=== PATIENT | male | born 1950 | race Caucasian/White ===

== ENCOUNTER 2024-11-17 12:30 | Outpatient (AMB) | payer MEDICARE, BC, SELFPAY ==
--- NOTE | 2024-11-17 13:07 | A.OFFVIS_ITS ---
Vital Signs 11/17/24 13:08 Height 6 ft 1 in Weight 165 lb 5.547 oz BMI 21.8 BP 120/74 Blood Pressure Location Lt brachial Position Sitting Pulse 74 Intake Visit Reasons: HYDRAULIC PRESS OPERATOR//CAD,[facility] Intake Note: New patient dx CAD was seeing Dr howard wanted a new doctor Dental Laboratory Assistant Required: No Allergies Brlkpge-VRG-NeP Reductase Inhibitor Allergy (Mild, Verified 11/17/24 13:14) nausa Medication List - Last Reconciled 11/17/24 by Felix Rangel MD aspirin (Adult Aspirin Regimen) 81 mg PO DAILY calcium carbonate (Tums) 200 mg PO BID cholecalciferol (vitamin D3) 25 mcg PO DAILY HPI Comments Details: Thank you for referring Pete in cardiology consultation today for management of coronary artery disease. He is a pleasant 74-year-old male with prior remote history of multivessel stenting in July 2018. He says that he was advise a stress test and while performing the stress test they emergently referred him to the emergency room because of abnormal EKG, question severe ischemia detected. He was then noted to be stabilized in the emergency room and subsequently was advised a cardiac catheterization which happen 2 weeks later. This showed severe three-vessel disease including , proximal 99% LAD, 100% OM1 lesion which was felt to be chronic total occlusion and distal bifurcation RPDA and RPLV 99% stenosis. He was referred for surgical evaluation although after discussion with his patient decided to undergo multivessel PCI and underwent drug- eluting stent to proximal LAD as well as to RPDA and RPLV. He said he might have symptoms exertional shortness of breath prior to the procedure as he was noticing shortness of breath but never had any chest pain prior to the procedure. Since the procedure he said he has been doing well. Denies any clear worsening shortness of breath. Denies any exertional chest pain at this point time. He 11 months post PCI was on statin therapy and had developed rhabdomyolysis and statins were stopped and no other lipid therapy has been initiated. He is currently only on aspirin therapy. His metoprolol was stopped recently. He said he feels well. He exercises 3 times a week without any new symptoms. [facility] Medical History Hyperlipidemia CAD (coronary artery disease) Surgical History Stented coronary artery Hx of colonoscopy History of cardiac catheterization Family History Father No problems noted. Mother PFO (patent foramen ovale) Social History Patient Tobacco Use Status: Former Tobacco user Review of Systems Const Denies chills, Denies daytime sleepiness, Denies fatigue, Denies fever(s), Denies frequent falls, Denies poor appetite, Denies snoring, Denies stops breathing during sleep, Denies weakness, Denies weight gain and Denies weight loss Eyes Denies loss of vision ENT Denies dizziness and Denies hearing loss Card Denies chest pain, Denies claudication, Denies leg edema, Denies lightheadedness, Denies palpitations, Denies dyspnea, Denies dyspnea on exertion and Denies orthopnea Resp Denies cough, Denies excessive phlegm production, Denies dyspnea, Denies dyspnea on exertion, Denies snoring and Denies wheezing GI Denies abdominal pain, Denies hematochezia, Denies change in bowel habits, Denies nausea and Denies vomiting Denies dysuria and Denies urinary frequency Musc Denies arthralgias, Denies muscle weakness, Denies numbness and Denies other (frequent falls) Skin/Breast Denies nail changes and Denies rash Neuro Denies Abnormal speech present, Denies dizziness, Denies frequent falls, Denies loss of vision, Denies memory loss, Denies numbness and Denies weakness Psych Denies depression and Denies memory loss Endo Denies fatigue and Denies palpitations Abel/Lymph Reports easy bruising and Reports other (anemia) Aller/Immun Denies wheezing Physical Exam Vital Signs: Last Vital Signs Pulse 74 11/17/24 13:08 BP 120/74 11/17/24 13:08 BMI result Body Mass Index 21.8 Neuro Speech: No Abnormal speech present Office Procedures EKG Details: EKG shows normal sinus rhythm normal EKG [id number], Complete Assessment & Plan Assessment & Plan (1) CAD (coronary artery disease): Code(s): I25.10 - Atherosclerotic heart disease of [place] coronary artery without angina pectoris Category: Medical Plan: Coronary artery disease with prior multivessel PCI many years ago. Patient had vague symptoms of shortness of breath. Currently thinks he might have some exertional shortness of breath. Would suggest him to undergo exercise myocardial perfusion imaging given that he was untreated lipids and likelihood of progressive coronary disease high. Discussed with him about the same. Exercise myocardial perfusion imaging will be performed in near future. Also suggest echocardiogram to evaluate LV systolic and diastolic function to evaluate biatrial chamber size and any valvular abnormality. Recommend to pursue aggressive medical therapy. Currently on aspirin therapy which is and should be continued for life. Also suggested him to pursue lipid panel normal lipid markers and will require aggressive therapy. He had developed statin induced rhabdomyolysis and therefore would not be a candidate for statin therapy. Would suggest PCSK9 inhibitor therapy but will guide therapy based on his lipid panel. He is interested in pursuing that. He was not excited about injectable therapies but would consider it. Follow up in the clinic after above-mentioned test. Thank you for allowing me to partake in his care Orders: Orders NM cardiolite stress test 2 Weeks I25.10 - Atherosclerotic heart disease of [place] coronary artery without angina pectoris CA echo transthoracic complete 11/17/24 I25.10 - Atherosclerotic heart disease of [place] coronary artery without angina pectoris Lipoprotein A 11/17/24 I25.10 - Atherosclerotic heart disease of [place] coronary artery without angina pectoris CA stress test 11/17/24 I25.10 - Atherosclerotic heart disease of [place] coronary artery without angina pectoris Lipid Panel 11/17/24 I25.10 - Atherosclerotic heart disease of [place] coronary artery without angina pectoris CRP High Sensitivity 11/17/24 E78.5 - Hyperlipidemia, unspecified, I25.10 - Atherosclerotic heart disease of [place] coronary artery without angina pectoris Apolipoprotein B 11/17/24 I25.10 - Atherosclerotic heart disease of [place] coronary artery without angina pectoris Coding Level of Care Code New Pt Level 4 (75427) Complex EM visit Add On G2211 Diagnoses CAD (coronary artery disease) I25.10 CPT Codes EKG - CPT: 41085-[id number], Complete ([id number])
[2024-11-17 13:08] VITALS: BP 120/74; PULSE 74; BMI 21.8
== END 2024-11-17 13:49 | disposition home or self-care (01) ==
PROVIDERS: PCP Internal Medicine; Visit Provider Internal Medicine Cardiovascular Disease
DX: I25.10 Atherosclerotic heart disease of native coronary artery without angina pectoris (principal)
CPT/HCPCS: 93010; 99204; G2211

== ENCOUNTER → 2024-11-17 12:30 | Outpatient (BNVA) | payer MEDICARE, BC, SELFPAY | PROVIDERS: PCP Internal Medicine; Visit Provider Internal Medicine Cardiovascular Disease | DX: I25.10 Atherosclerotic heart disease of native coronary artery without angina pectoris (principal) | CPT/HCPCS: 93005; 99202 ==

== ENCOUNTER → 2024-12-11 07:47 | Outpatient (REF) | payer MEDICARE, BC, SELFPAY ==
--- NOTE | 2024-12-11 07:55 | CA_ITS ---
Acquisition Time: 2024-12-11 08:09:31 Total Exercise Time: 00:07:06 Test Indications: ABN EKS Medications: SEE H&P Protocol: ISREAL Max HR: 125 BPM 86% of Pred: 144 BPM Max BP: 184/74 mmHG Max Work Load: 8.6 METS Exercise Stress test with exercise 7 mins 6 secs of [place] Protocol, achieving 86% MPHR, without any anginal symptoms, with isolated PACs and PVCs, one ventricular couplet, with nomortensive response to exercise. With borderline EKG changes in leads II, aVF, and V4-V6. Difficult to interpret EKGs during exercise due to artifact. ST segment improved quickly. Nuclear images pending. Test reviewed with . Referred By: Felix Rangel Electronically Signed By: Zach Olivier
== END ==
LOC: HO.CARD 07:47
PROVIDERS: Visit Provider Internal Medicine Cardiovascular Disease
DX: I25.10 Atherosclerotic heart disease of native coronary artery without angina pectoris (principal)
CPT/HCPCS: 78452; 93017; A9500

== ENCOUNTER → 2024-12-11 07:55 | Outpatient (BNV) | payer MEDICARE, BC, SELFPAY | DX: I49.1 Atrial premature depolarization (principal); I49.3 Ventricular premature depolarization | CPT/HCPCS: 78452; 93016; 93018 ==

== ENCOUNTER → 2024-12-15 09:24 | Outpatient (REF) | payer MEDICARE, BC, SELFPAY ==
--- NOTE | 2024-12-15 09:27 | CA_ITS ---
Transthoracic Echocardiogram Patient (Last, First, Middle): Pete Bello, Gender: Male Date of : 1950 Age: 74 Procedure Date: 12/15/2024 Procedure Type: Transthoracic Echocardiogram Location: OP Height: 182.88 cm Weight: 81.65 kg BSA: 2.04 m2 Heart Rate: bpm BP: 120 / 70 mmHg Supervisor Electronics Testing: SB/RC Referring MD: Felix Rangel MD Symptoms: I25.10 - Atherosclerotic heart disease of [place] coronary artery without... Study Quality: Adequate ECG Rhythm: Bradycardia Conclusions: - The left ventricular systolic function is normal. The calculated ejection fraction is 68% by biplane method. - Ngnu-ot-bstlwzlh concentric left ventricular hypertrophy. - No obvious valvular pathology seen on this study. Findings Procedure Information Contrast agent, definity, is being given per protocol without apparent complications. Left Ventricle Normal left ventricular cavity size. The left ventricular systolic function is normal. The calculated ejection fraction is 68% by biplane method. There is no evidence of regional wall motion abnormalities. Diastolic function is normal for age. Csfu-lj-finkrita concentric left ventricular hypertrophy. Right Ventricle Mildly increased right ventricular cavity size. There is normal right ventricular systolic function. Atria Both atria are normal in size. Aortic Valve There is a normal trileaflet aortic valve. There is no aortic valve stenosis. There is no aortic valve regurgitation. Mitral Valve The mitral valve appears normal. There is trace mitral valve regurgitation. There is no mitral valve stenosis. Pulmonic Valve The pulmonic valve is likely normal. Tricuspid Valve Normal tricuspid valve structure. There is trace tricuspid valve regurgitation. There is no evidence of pulmonary hypertension. Great Vessels The asc aorta is normal in size. Venous The inferior vena cava is normal in size and collapses less than 50% with inspiration. Pericardium/Pleural There is no evidence of pericardial effusion. Prior Study Comparison No prior study available for comparison. Recommendations, Care & Conclusions No obvious valvular pathology seen on this study. Measurements 2D Linear Measurements IVSd: 1.38 0.6-0.9/0.6-1.0 cm LVIDd: 3.95 3.9-5.3/4.2-5.9 cm LVIDd Index: 1.94 2.4-3.2/2.2-3.1 cm/m2 LVIDs: 3.09 2.0-3.6 cm LVPWd: 1.24 0.7-1.1 cm LA Diam: 3.90 2.7-3.8/3.0-4.0 cm LAIDs Index: 1.91 1.5-2.3 cm/m2 LV Mass: 230.84 67-162/88-224 g LV Mass Index: 113.16 43-95/49-115 g/m2 LVOT Diam: 2.30 3.0+(-)1.3 cm 2D Systolic Function EF 4C: 67.00 >55% EF 2C: 69.70 >55% EF BiP: 68.20 >55% Mitral Valve MV Pk E: 0.72 MV PK A: 0.89 MV Decel Time: 222.00 E/A: 0.80 E'Lateral: 7.77 E'Medial: 6.65 E/E' Med: 10.90 E/E' Lat: 9.30 PHT: 65.00 MVA PHT: 3.38 Decel [place]: 3.25 Aortic Valve AoV Pk Drew: 1.23 AoV Pk Grad: 6.00 MARLIN: 3.90 LVOT LVOT Pk Drew: 1.26 LVOT Mn Drew: 0.82 LVOT VTI: 0.28 LVOT Pk Grad: 6.00 LVOT Mn Grad: 3.00 LVOT Diam: 2.30 LVOT Area: 4.15 Diastolic Function MV Pk E: 0.72 MV Pk A: 0.89 E/A: 0.80 E'Medial: 6.65 E/E' Med: 10.90 E' Laterial: 7.77 E/E' Lat: 9.30 Right Ventricle TAPSE (mm): 28.00 TVS' Drew: 14.50 Tricuspid Valve RA Press: 8.00 Great Vessels Aorta Sinus of Valsalva: 3.10 2.0-3.5 cm Ao Asc: 3.20 2.1-3.4 cm Pulmonary Veins Pulm Vein S/D 1.50 Pulmonary Valve PV Pk Drew: 1.13 Peak PV Grad: 5.00 Updated in Other Vendor System with Status of Final Jesús Baker MD electronically signed on 12/16/2024 3:53:08 PM with status of Final
== END ==
LOC: HO.CARD 09:24
PROVIDERS: Visit Provider Internal Medicine Cardiovascular Disease
DX: I25.10 Atherosclerotic heart disease of native coronary artery without angina pectoris (principal)
CPT/HCPCS: 93306; Q9957

== ENCOUNTER → 2024-12-15 09:27 | Outpatient (BNV) | payer MEDICARE, BC, SELFPAY | PROVIDERS: Visit Provider Internal Medicine | DX: I25.10 Atherosclerotic heart disease of native coronary artery without angina pectoris (principal); I25.5 Ischemic cardiomyopathy | CPT/HCPCS: 93306 ==

== ENCOUNTER 2024-12-29 08:55 | Outpatient (AMB) | payer MEDICARE, BC, SELFPAY ==
--- NOTE | 2024-12-29 08:59 | MHC.OFFVIS ---
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 Present Allergies Svibnbp-TWP-BfJ Reductase Inhibitor Allergy (Mild, Verified 12/29/24 09:01) nausa Medication List - Last Reconciled 12/29/24 by Clementina Johnson NP-C aspirin (Adult Aspirin Regimen) 81 mg PO DAILY calcium carbonate (Tums) 200 mg PO BID cholecalciferol (vitamin D3) 25 mcg PO DAILY HPI HPI f/u stress and echo results: Details: Pete is a 74-year-old male with past medical history of hyperlipidemia, multivessel CAD with stents, rhabdomyolysis with statin use, reported atrial fibrillation in the past, who recently underwent exercise nuclear stress test and echocardiogram and now presents for follow-up. Today he reports that he has been feeling well with no concerning symptoms. He tells me he exercises routinely and has good tolerance. He does not get chest discomfort at rest or with activity. He denies having shortness of breath, PND, orthopnea or edema. He has no heart palpitations, lightheadedness, presyncope, syncope. He is compliant with his meds but states he ran out of metoprolol a few months ago and his PCP did not refill it. He is wondering if he should restart. He does not take any cholesterol-lowering agents. is present. [facility] Medical History (Updated 12/29/24 @ 11:09 by JIM Zhu) Hyperlipidemia CAD (coronary artery disease) Surgical History (Updated 12/29/24 @ 11:09 by Clementina Johnson NP-C) Stented coronary artery Hx of colonoscopy History of cardiac catheterization Family History Father No problems noted. Mother PFO (patent foramen ovale) Social History Patient Tobacco Use Status: Former Tobacco user Review of Systems Const All systems reviewed & are unremarkable except as noted in HPI and below ENT Denies dizziness Card Denies chest pain, Denies chest pain at rest, Denies chest pain with activity, Denies rapid heart rate, Denies pedal edema, Denies edema, Denies leg edema, Denies lightheadedness, Denies palpitations, Denies dyspnea, Denies dyspnea on exertion and Denies orthopnea Resp Denies cough, Denies dyspnea and Denies dyspnea on exertion GI Denies hematochezia and Denies change in stool character Musc Denies abnormal gait, Denies limited range of motion, Denies muscle cramps, Denies muscle weakness, Denies numbness, Denies radiating pain into limb, Denies stiffness and Denies tingling Neuro Denies abnormal gait, Denies dizziness, Denies numbness and Denies tingling Endo Denies palpitations Physical Exam Vital Signs: BMI result Body Mass Index 23.2 Const General: cooperative, healthy appearing, comfortable and no acute distress Orientation/consciousness: patient oriented x3 Neck Neck: Yes normal visual inspection Resp Effort & Inspection: normal respiratory effort Auscultation: clear to auscultation bilaterally, no rales, no rhonchi and no wheezes Cardio Rate: regular rate Rhythm: regular rhythm Heart sounds: S1 normal heart sound present, S2 normal heart sound present, no gallops, no murmurs and no rubs Neuro General: patient oriented x3 Extrem General: Yes normal to inspection, No no pedal edema and No calf tenderness Psych Appearance: grossly normal Mental Status: mental status grossly normal Speech and movement: Normal speech and movement present Assessment & Plan Assessment & Plan (1) CAD (coronary artery disease): Code(s): I25.10 - Atherosclerotic heart disease of [place] coronary artery without angina pectoris Category: Medical Plan: Hx CAD with cardiac cath 07/2018 showing severe three-vessel disease including , proximal 99% LAD, 100% OM1 lesion which was felt to be chronic total occlusion and distal bifurcation RPDA and RPLV 99% stenosis. He was referred for surgical evaluation although after further discussion decided to undergo multivessel PCI: drug-eluting stent to proximal LAD as well as to RPDA and RPLV. EKG done last visit shows sinus rhythm rate 74. A exercise nuclear stress test done 12/11/2024 with exercise 7 minutes, no symptoms, borderline EKG changes and nuclear imaging showing infarct in the inferior and inferior lateral wall, basal lateral wall with some ischemia. Echocardiogram 12/15/2024 showed EF 68%, [id number] LVH, no valve abnormalities. Test results reviewed with him in detail. He has no anginal symptoms and reports good activity tolerance. Will continue med management for stable CAD. Continue aspirin indefinitely. Will restart metoprolol XL 25 mg daily. He is not on statins due to prior rhabdomyolysis. Lipid panel is pending, patient reminded of this. Signs and symptoms of angina reviewed. Cardiology follow-up 6 months, sooner if needed. (2) Stented coronary artery: Comment: Multivessel stenting, July 2018 Code(s): Z95.5 - Presence of coronary angioplasty implant and graft Category: Surgical Plan: As above (3) Abnormal nuclear stress test: Code(s): R94.39 - Abnormal result of other cardiovascular function study Category: Medical Plan: As above (4) LVH (left ventricular hypertrophy): Code(s): I51.7 - Cardiomegaly Category: Medical Plan: Noted on echocardiogram. He denies history of hypertension. Blood pressure currently normal range. (5) Hyperlipidemia: Code(s): E78.5 - Hyperlipidemia, unspecified Category: Medical Plan: [place] LDL goal less than 70. Unable to take statin. Lab orders pending (6) Atrial fibrillation: Code(s): I48.91 - Unspecified atrial fibrillation Category: Medical Plan: Patient reports having atrial fibrillation at the time of his multivessel CAD and stenting. He has not had any known or documented AFib since that time. He does not feel heart palpitations. Will reach out to [facility] [place] for hospital records. Will check Holter monitor to assess for any asymptomatic PAF. Chads Vasc score of 3. If recurrent AFib is identified then anticoagulation would be indicated. This was discussed with him. Plan Time spent on chart review, documentation, interview and assessment Orders: Orders ECG 3 day holter monitor Today I48.91 - Unspecified atrial fibrillation Medications: New metoprolol succinate ER 25 mg PO DAILY 90 tabs 3RF Coding Level of Care Code Est Pt Level 4 (95013) Complex EM visit Add On G2211 Diagnoses CAD (coronary artery disease) I25.10 Stented coronary artery Z95.5 Abnormal nuclear stress test R94.39 LVH (left ventricular hypertrophy) I51.7 Hyperlipidemia E78.5 Atrial fibrillation I48.91 Time Spent (min) 32
[2024-12-29 09:00] VITALS: BP 120/62; PULSE 76; BMI 23.2
== END 2024-12-29 09:40 | disposition home or self-care (01) ==
LOC: HO.HCS 08:57
PROVIDERS: Visit Provider Nurse Practitioner Family
DX: I25.10 Atherosclerotic heart disease of native coronary artery without angina pectoris (principal); Z95.5 Presence of coronary angioplasty implant and graft; R94.39 Abnormal result of other cardiovascular function study; I51.7 Cardiomegaly; E78.5 Hyperlipidemia, unspecified; I48.91 Unspecified atrial fibrillation
CPT/HCPCS: 99214; G2211

== ENCOUNTER → 2024-12-29 08:55 | Outpatient (BNVA) | payer MEDICARE, BC, SELFPAY | PROVIDERS: Visit Provider Nurse Practitioner Family ==

== ENCOUNTER → 2024-12-29 09:57 | Outpatient (REF) | payer MEDICARE, BC, SELFPAY | LOC: HO.CARD 09:57 | PROVIDERS: Visit Provider Nurse Practitioner Family | DX: I48.91 Unspecified atrial fibrillation (principal) | CPT/HCPCS: 93242; 99212 ==

== ENCOUNTER 2025-01-04 09:01 | Outpatient (REF) | payer MEDICARE, BC, SELFPAY ==
[2025-01-04 10:18] LABS: Cholesterol 180 mg/dL (<200); HDL Cholesterol 48 mg/dL (>40); LDL Cholesterol Calculated 119 mg/dL (<100); Triglycerides 65 mg/dL (<150)
[2025-01-05 04:22] LABS: CRP High Sensitivity 6.2 mg/L
[2025-01-07 21:24] LABS: Apolipoprotein B 90 mg/dL (<90)
[2025-01-08 08:58] LABS: Lipoprotein A <10 nmol/L (<75)
== END 2025-01-04 09:02 | disposition home or self-care (01) ==
LOC: HO.HMGCLDS 09:01
PROVIDERS: PCP Internal Medicine; Visit Provider Internal Medicine Cardiovascular Disease
DX: I25.10 Atherosclerotic heart disease of native coronary artery without angina pectoris (principal); E78.5 Hyperlipidemia, unspecified
CPT/HCPCS: 36415; 80061; 82172; 83695; 86141

== ENCOUNTER 2025-03-18 13:57 | Outpatient (AMB) | payer MEDICARE, BC, SELFPAY ==
[2025-03-18 14:48] VITALS: BP 128/78; PULSE 68; BMI 22.4
--- NOTE | 2025-03-18 14:48 | MHC.OFFVIS ---
Vital Signs 03/18/25 14:48 Height 6 ft 1 in Weight 170 lb BMI 22.4 BP 128/78 Blood Pressure Location Lt brachial Position Sitting Pulse 68 Pulse Source Pulse Oximeter Intake Visit Reasons: f/up holter Allergies [id number] Reductase Inhibitor Allergy (Mild, Verified 12/29/24 09:01) nausa Medication List - Last Reconciled 03/18/25 by Zach Olivier NP aspirin (Adult Aspirin Regimen) 81 mg PO DAILY calcium carbonate (Tums) 200 mg PO BID cholecalciferol (vitamin D3) 25 mcg PO DAILY ezetimibe 10 mg PO DAILY metoprolol succinate ER 25 mg PO DAILY HPI Comments Details: This is a 74-year-old male patient coming in for a follow-up visit after completing a Holter study. 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 In the last visit, patient had reported maybe questions of AFib during the time of his multivessel coronary artery disease and stenting, no records of it. Subsequently, patient underwent a Holter study. Today, patient reports feeling well overall and denies any exertional chest pain, shortness of breath, palpitations, dizziness, orthopnea, PND, leg edema, presyncope, or syncope. Patient states he is compliant with all his medications. [facility] Medical History Hyperlipidemia CAD (coronary artery disease) Surgical History Stented coronary artery Hx of colonoscopy History of cardiac catheterization Family History Father No problems noted. Mother PFO (patent foramen ovale) Social History Patient Tobacco Use Status: Former Tobacco user Review of Systems Const Denies weakness ENT Denies dizziness Card Denies chest pain, Denies chest pain with activity, Denies syncope, Denies rapid heart rate, Denies pedal edema, Denies edema, Denies leg edema, Denies lightheadedness, Denies palpitations, Denies dyspnea, Denies dyspnea on exertion and Denies orthopnea Resp Denies cough, Denies dyspnea and Denies dyspnea on exertion GI Denies hematochezia and Denies change in stool character Musc Denies abnormal gait, Denies muscle cramps, Denies muscle weakness, Denies numbness, Denies radiating pain into limb and Denies tingling Neuro Denies abnormal gait, Denies dizziness, Denies syncope, Denies numbness, Denies tingling and Denies weakness Endo Denies palpitations Physical Exam Vital Signs: Last Vital Signs Pulse 68 03/18/25 14:48 BP 128/78 03/18/25 14:48 BMI result Body Mass Index 22.4 Const General: cooperative, healthy appearing, comfortable and no acute distress Orientation/consciousness: patient oriented x3 HEENT Head: Yes normal to inspection Neck Neck: Yes normal visual inspection, Yes trachea midline and Yes supple Chest Chest palpation & inspection: normal inspection of the chest Resp Effort & Inspection: normal respiratory effort Auscultation: clear to auscultation bilaterally, no crackles, no rales, no rhonchi and no wheezes Cardio Jugular venous distension: no JVD Palpation: normal PMI Rate: regular rate Rhythm: regular rhythm Heart sounds: S1 normal heart sound present, S2 normal heart sound present, no click, no gallops, no murmurs and no rubs Peripheral pulses: Peripheral pulses 2+ throughout GI Inspection: Yes normal to inspection Palpation (GI): Soft to palpation Auscultation: normal bowel sounds Skin General skin exam: no rashes or lesions noted Neuro General: patient oriented x3 Extrem General: Yes normal to inspection, No no pedal edema and No calf tenderness Psych Appearance: grossly normal Mental Status: mental status grossly normal Speech and movement: Normal speech and movement present Assessment & Plan Assessment & Plan (1) CAD (coronary artery disease): Code(s): I25.10 - Atherosclerotic heart disease of [place] coronary artery without angina pectoris Category: Medical Plan: July 2018-patient underwent a cardiac catheterization that showed severe three-vessel disease with stenosis 99% in the proximal LAD, [employer] OM1, and distal bifurcation of RPDA and RPLV 99% stenosis. Patient underwent multivessel also PCI with drug-eluting stent to proximal LAD as well as to RPDA and RPLV. 11/21/2024-patient underwent myocardial perfusion study that showed infarct in the inferior and inferolateral wall, basal lateral wall with some ischemia. 12/15/2024-echo study showed an LV systolic function normal with an ejection fraction at 68%, [id number] LVH. Clinically stable without any anginal symptoms. Continue lifelong aspirin therapy. Most recent LDL not under control at 119. Continue Zetia therapy. We will repeat a lipid profile. Patient with a history of rhabdomyolysis from statins. Discuss maybe needing PCSK9 inhibitors if LDL not within goal which is less than 70. (2) Stented coronary artery: Comment: Multivessel stenting, July 2018 Code(s): Z95.5 - Presence of coronary angioplasty implant and graft Category: Surgical Plan: As above. (3) Hyperlipidemia: Code(s): E78.5 - Hyperlipidemia, unspecified Category: Medical Plan: As above. (4) LVH (left ventricular hypertrophy): Code(s): I51.7 - Cardiomegaly Category: Medical Plan: No history of hypertension. Blood pressure today is within control. With questions of AFib in the past even though no records of it, to evaluate for this patient underwent a Holter study on 12/29/2024 that showed a baseline normal sinus rhythm with an average heart rate of 64 beats per minute, with rare to occasional PACs and PVCs and no AFib. Discussed in detail about management for AFib. We agreed to defer on anticoagulation as there is no records of AFib anywhere. Patient understands to report in case of prolonged palpitations and other symptoms, at which point then we will repeat a Holter study or even a cardiac event monitor. Advised heart healthy diet, regular exercise, med compliance, and management of vascular risk factors. Follow up in 6 months. In the interim, patient will call the office with any concerns or change in symptoms. This note was generated using voice recognition software. While every effort has been made to ensure accuracy and proper burglar alarm superintendent, there may be occasional errors that could affect the content or meaning of the described symptoms. Orders: Orders Lipid Panel Today E78.5 - Hyperlipidemia, unspecified, I25.10 - Atherosclerotic heart disease of [place] coronary artery without angina pectoris Coding Level of Care Code Est Pt Level 4 (45583) Complex EM visit Add On G2211 Diagnoses CAD (coronary artery disease) I25.10 Stented coronary artery Z95.5 Hyperlipidemia E78.5 LVH (left ventricular hypertrophy) I51.7 Time Spent (min) 32 Comment Time spent in reviewing the chart, test results, assessment, counseling and documentation.
== END 2025-03-18 15:06 | disposition home or self-care (01) ==
LOC: HO.HCS 13:58
PROVIDERS: PCP Internal Medicine
DX: I25.10 Atherosclerotic heart disease of native coronary artery without angina pectoris (principal); Z95.5 Presence of coronary angioplasty implant and graft; E78.5 Hyperlipidemia, unspecified; I51.7 Cardiomegaly
CPT/HCPCS: 99214; G2211

== ENCOUNTER → 2025-03-18 13:57 | Outpatient (BNVA) | payer MEDICARE, BC, SELFPAY | PROVIDERS: PCP Internal Medicine | DX: I25.10 Atherosclerotic heart disease of native coronary artery without angina pectoris (principal); I51.7 Cardiomegaly; E78.5 Hyperlipidemia, unspecified; Z95.5 Presence of coronary angioplasty implant and graft; Z79.82 Long term (current) use of aspirin; Z79.899 Other long term (current) drug therapy | CPT/HCPCS: 99212 ==